=== PATIENT | male | born 1970 | race Caucasian/White ===

== ENCOUNTER 2019-04-16 05:34 | Outpatient (CLI) | payer BC ==
[~2019-04-16] VITALS: Ht 162.6 cm; Wt 102.3 kg
== END 2019-04-16 15:06 ==
LOC: PREOP 05:34
PROVIDERS: ATTEND Surgery
DX: Z01.818 Encounter for other preprocedural examination (principal)

== ENCOUNTER 2019-04-23 07:49 | Day surgery (SDC) | payer BC ==
[~2019-04-23] VITALS: Ht 162.6 cm; Wt 102.3 kg
[2019-04-23] MEDS ORDERED: LACTATED RINGERS 1,000 ML IV ONE (07:59)
[2019-04-23] MEDS ORDERED: LACTATED RINGERS 1,000 ML IV STA (07:59)
--- NOTE | 2019-04-23 08:07 | Progress Note-Pre Operative ---
Pre-Operative Progress Note H&P Reviewed The H&P was reviewed, patient examined and no changes noted. Time Seen by Provider: 08:02 Date H&P Reviewed: Apr 23, 2019 Time H&P Reviewed: 08:03 Pre-Operative Diagnosis: Screening Colonoscopy FELIPA BLACKBURN DO Apr 23, 2019 08:07
[2019-04-23 08:10] VITALS: BP 136/86
[2019-04-23] MEDS ORDERED: PROPOFOL INJECTION 50 ML IV ONE (08:35)
[2019-04-23] MEDS ORDERED: MIDAZOLAM 2 MG/2 ML (VERSED) VIAL ONE (08:36)
[2019-04-23 09:00] VITALS: BP 102/59
--- NOTE | 2019-04-23 09:00 | Progress Note-Post Operative ---
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
--- NOTE | 2019-04-23 09:01 | Endoscopy Discharge Instruct ---
Endo Procedure/Findings Findings 1.: Diverticulosis 2.: Internal Hemorrhoids Discharge Instructions - Activity: You might feel a little sleepy until tomorrow. This is due to the medicine you received to relax you. Until tomorrow, you should: NOT drive a car, operate machinery or power tools. NOT drink any alcoholic beverages. NOT make any important decisions or sign importortant papers. Do not return to work until tomorrow, unless otherwise instructed. Resume previous activities tomorrow. Diet: Start by taking liquids. If you tolerate liquids, advance to solid food. make an appointment for one week 1.: Colonscopy in 10 years Notify Physician - If you experience excessive bleeding, unusual abdominal pain, fever, or chest pain, contact your doctor immediately. FELIPA BLACKBURN DO Apr 23, 2019 09:00
[2019-04-23 09:05] VITALS: BP 99/59
[2019-04-23 09:35] VITALS: BP 108/66
[2019-04-23 09:45] VITALS: BP 108/66
--- NOTE | 2019-04-23 12:43 | Anesthesia-General Post-Op ---
MAC Patient Condition Mental Status/LOC: Same as Preop Cardiovascular: Satisfactory Nausea/Vomiting: Absent Respiratory: Satisfactory Pain: Controlled Complications: Absent Post Op Complications Complications None Follow Up Care/Instructions Patient Instructions None needed. Anesthesiology Discharge Order Discharge Order Patient is doing well, no complaints, stable vital signs, no apparent adverse anesthesia problems. No complications reported per nursing. AMARJIT CHASE CRNA Apr 23, 2019 12:43
--- NOTE | 2019-04-23 22:39 | OPERATIVE REPORT ---
DATE OF SERVICE: PREOPERATIVE DIAGNOSIS: Screening colonoscopy. POSTOPERATIVE DIAGNOSES: 1. Diverticula. 2. Internal hemorrhoids. PROCEDURE: Colonoscopy. SURGEON: Abiel Mcmullen DO. REGULATORY SUBMISSIONS SPECIALIST: Dao Manuel MS-3 ANESTHESIA: IV sedation by INTERVENTIONAL PAIN PHYSICIAN. SPECIMENS: None. BLOOD LOSS: None. FLUIDS: Per anesthesia. POSTOPERATIVE CONDITION: Stable. INDICATION FOR PROCEDURE: The patient is a 48-year-old male who needed a screening colonoscopy. FINDINGS: The patient had one small diverticula. He had some very-very small internal hemorrhoids. No other obvious pathology. PROCEDURE NOTE: After informed consent was obtained, the patient was brought to the endoscopy suite, placed in bed in left lateral decubitus position. He was administered IV sedation by the INTERVENTIONAL PAIN PHYSICIAN who monitored his vitals the entire time, heart rate, blood pressure, pulse ox and the scope was inserted all the way to [address] in, noted diverticula, took a picture, able to get all the way to cecum, took a picture of appendiceal orifice, noted the ileocecal valve and then slowly withdrew the scope insufflating to look circumferentially at the hawthorne looking the cecum, up the ascending colon to the hepatic flexure, then down the transverse colon and splenic flexure, into the descending colon and then down the sigmoid finally into the rectum, retroflexed the rectal vault, saw some very minimal internal hemorrhoids, took a picture and then removed the scope. The patient tolerated the procedure. He was recovered in endoscopy suite. Job ID: [id number] DocumentID: [id number] Dictated Date: 04/23/2019 14:22:17 Ring Facer Date: 04/23/2019 22:38:51 Dictated By: ABIEL MCMULLEN DO
== END 2019-04-23 09:45 | disposition home or self-care (01) ==
LOC: ENDO 07:49
PROVIDERS: ATTEND Surgery
DX: Z12.11 Encounter for screening for malignant neoplasm of colon (principal); K57.90 Diverticulosis of intestine, part unspecified, without perforation or abscess without bleeding; K64.8 Other hemorrhoids

== ENCOUNTER 2022-03-16 16:58 | Emergency (ER) | payer BC ==
[~2022-03-16] VITALS: Ht 162.5 cm; Wt 93.8 kg
[2022-03-16] MEDS ORDERED: ASPIRIN 81 MG CHEW (CHILDREN'S ASA) PO ONE (17:30)
--- NOTE | 2022-03-16 17:31 | ED Chest Pain ---
General Chief Complaint: Chest Pain Stated Complaint: CHEST PAIN Nursing Triage Note: PT AMB TO [facility] 5 WITH COMPLAINT OF CP. 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 STATES PAIN HAS WORSENED OVER THE DAY. STATES BP WAS HIGH AT HOME. PT IS SUPPOSE TO BE TAKING BP MEDS AT HOME BUT DOES NOT. Source: patient Exam Limitations: no limitations (MAT PYLE MD) History of Present Illness Date Seen by Provider: Mar 16, 2022 Time Seen by Provider: 17:20 Initial Comments Patient is a 51-year-old male who presents to the emergency department today with a chief complaint of sharp, sticking pain in his left axilla between his shoulder and nipple. Patient states he noted it after being at work for about 4 hours this morning at 7 AM. He states its brief, intermittent. Nothing seems to bring it on. Nothing makes it any worse when it happens. As quick as it starts it goes away. He has had it multiple times throughout the day. He states this afternoon it moved to just above his left nipple on the left anterior chest. No associated symptoms of shortness of breath, nausea or diaphoresis. He does have a history of hypertension but has not been taking medications for this because he does not like to take pills. No family history of first-degree relatives with coronary artery disease. He is not and has not ever been a smoker. He has not taken any aspirin today. He is scheduled to see his primary care physician for routine annual checkup in May 2022. He has never had a cardiac work-up/stress test in the past. Unknown cholesterol. Currently pain-free. Last week he had cough and congestion, on . He was tested for COVID and flu and they were negative. All other review of systems reviewed and negative except as stated. Timing/Duration: other (10h) Severity/Quality: mild, sharp Location: other (left axilla and left upper chest) Radiation: no radiation Activities at Onset: other (at work) Prior CP/Workup: no prior chest pain, no prior cardiac workup ASA po HEALTH TECHNICAL WRITER: No NTG SL HEALTH TECHNICAL WRITER: No Associated Symptoms: denies symptoms (MAT PYLE MD) Allergies and Home Medications Allergies Coded Allergies: No Known Allergies (Unverified Allergy, Unknown, 04/23/19) Patient Home Medication List Home Medication List Reviewed: Yes (MAT PYLE MD) No Active Prescriptions or Reported Meds Review of Systems Review of Systems Constitutional: see HPI EENTM: No Symptoms Reported Respiratory: No Symptoms Reported Cardiovascular: Chest Pain Gastrointestinal: No Symptoms Reported Genitourinary: No Symptoms Reported Musculoskeletal: no symptoms reported Skin: no symptoms reported Endocrine: No Symptoms Reported (MAT PYLE MD) All Other Systems Reviewed Negative Unless Noted: Yes (MAT PYLE MD) Past Txbmbbu-Cresqz-Nbuvkk Hx Patient Social History Tobacco Use?: No Use of E-Cig and/or Vaping dev: No Substance use?: No Alcohol Use?: Yes Alcohol Frequency: Once in a while Pt feels they are or have been: No (MAT PYLE MD) Seasonal Allergies Seasonal Allergies: No (MAT PYLE MD) Past Medical History Surgeries: Yes (neck fx, arm sx) Appendectomy Respiratory: No Cardiac: No Neurological: No Genitourinary: No Gastrointestinal: No Musculoskeletal: Yes Fractures Endocrine: No HEENT: No Psychosocial: No Integumentary: No Blood Disorders: No (MAT PYLE MD) Physical Exam Vital Signs Vital Signs - First Documented 03/16/22 17:05 Temp 36.3 Pulse 63 Resp 25 B/P (MAP) 176/96 (122) Pulse Ox 97 O2 Delivery Room Air (KRISTY BARGERA Navdeep DO) Vital Signs Capillary Refill : Less Than 3 Seconds (MTA PYLE MD) Height, Weight, BMI Height: '" Weight: lbs. oz. kg; 35.00 BMI Method: General Appearance: No Apparent Distress, WD/WN HEENT: PERRL/EOMI Respiratory: Chest Non Tender, Lungs Clear, Normal Breath Sounds, No Accessory Muscle Use, No Respiratory Distress Cardiovascular: Regular Rate, Rhythm, Normal Peripheral Pulses Gastrointestinal: Normal Bowel Sounds, Non Tender, Soft Extremity: Normal Capillary Refill, Normal Inspection, Normal Range of Motion, Non Tender, No Calf Tenderness, No Pedal Edema Neurologic/Psychiatric: Alert, Oriented x3, No Motor/Sensory Deficits, Normal Mood/Affect, investment fund manager II-XII Norm as Tested Skin: Normal Color, Warm/Dry (MAT PYLE MD) Progress/Results/Core Measures Results/Orders Lab Results Laboratory Tests Test 03/16/22 17:13 Range/Units White Blood Count 11.0 4.3-11.0 10^3/uL Red Blood Count 4.41 4.30-5.52 10^6/uL Hemoglobin 15.6 13.3-17.7 g/dL Hematocrit 44 40-54 % Mean Corpuscular Volume 99 80-99 fL Mean Corpuscular Hemoglobin 35 H 25-34 pg Mean Corpuscular Hemoglobin Concent 36 32-36 g/dL Red Cell Distribution Width 11.3 10.0-14.5 % Platelet Count 252 130-400 10^3/uL Mean Platelet Volume 10.1 9.0-12.2 fL Immature Granulocyte % (Auto) 0 % Neutrophils (%) (Auto) 49 42-75 % Lymphocytes (%) (Auto) 40 12-44 % Monocytes (%) (Auto) 8 0-12 % Eosinophils (%) (Auto) 3 0-10 % Basophils (%) (Auto) 1 0-10 % Neutrophils # (Auto) 5.4 1.8-7.8 10^3/uL Lymphocytes # (Auto) 4.4 H 1.0-4.0 10^3/uL Monocytes # (Auto) 0.9 0.0-1.0 10^3/uL Eosinophils # (Auto) 0.3 0.0-0.3 10^3/uL Basophils # (Auto) 0.1 0.0-0.1 10^3/uL Immature Granulocyte # (Auto) 0.0 0.0-0.1 10^3/uL Prothrombin Time 13.7 12.2-14.7 SEC INR Comment 1.0 0.8-1.4 Activated Partial Thromboplast Time 29 24-35 SEC Sodium Level 138 135-145 MMOL/L Potassium Level 3.6 3.6-5.0 MMOL/L Chloride Level 103 98-107 MMOL/L Carbon Dioxide Level 23 21-32 MMOL/L Anion Gap 12 5-14 MMOL/L Blood Urea Nitrogen 10 7-18 MG/DL Creatinine 0.84 0.60-1.30 MG/DL Estimat Glomerular Filtration Rate 104 BUN/Creatinine Ratio 12 Glucose Level 79 70-105 MG/DL Calcium Level 9.6 8.5-10.1 MG/DL Corrected Calcium 9.5 8.5-10.1 MG/DL Magnesium Level 1.7 1.6-2.4 MG/DL Total Bilirubin 0.5 0.1-1.0 MG/DL Aspartate Amino Transf (AST/SGOT) 21 5-34 U/L Alanine Aminotransferase (ALT/SGPT) 19 0-55 U/L Alkaline Phosphatase 81 40-136 U/L Myoglobin 34.5 10.0-92.0 NG/ML Troponin I < 0.028 <0.028 NG/ML Total Protein 8.6 H 6.4-8.2 GM/DL Albumin 4.1 3.2-4.5 GM/DL (DENITA,PRINCESS K DO) Medications Given in ED Current Medications Medications Dose Ordered Sig/Gabriela Route Start Time Stop Time Status Last Admin Dose Admin Aspirin 324 mg ONCE ONCE PO 03/16/22 17:30 03/16/22 17:31 DC 03/16/22 17:50 324 MG (DENITA,PRINCESS K DO) Vital Signs/I&O 03/16/22 17:05 Temp 36.3 Pulse 63 Resp 25 B/P (MAP) 176/96 (122) Pulse Ox 97 O2 Delivery Room Air (DENITA,PRINCESS K DO) Blood Pressure Mean: 122 Progress Progress Note : Progress Note 1800--ASSUMED CARE FROM DR. PYLE AT SHIFT CHANGE. LAB PENDING. 1817--REVIEWED TEST RESULTS WITH PT AND . PT STATES IT FEELS LIKE SOMEONE IS STICKING HIM WITH A NEEDLE--SHARP STICK PAIN THAT LASTS A SECOND AND THEN GOES AWAY, AND MOVES AROUND OVER LEFT CHEST. NO RASH OR SKIN ABNORMALITY NOTED IN THIS AREA. VITALS STABLE. 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 DISCUSSED ANTICIPATED COURSE, NEED FOR FOLLOW UP AND RETURN PRECAUTIONS (DENITA,PRINCESS K DO) Initial ECG Impression Date: Mar 16, 2022 Initial ECG Impression Time: 17:16 Initial ECG Rate: 61 Initial ECG Rhythm: Normal Sinus Comment Poor R wave progression over the precordium, no ST segment elevation or de pression is noted. No ectopy. Normal intervals. Q waves noted in lead III and aVF; lead aVF is low voltage (MAT PYLE MD) Diagnostic Imaging Comments CXR--PER RADIOLOGIST REPORT AT 1816 FINDINGS: The heart size is normal. The pulmonary vascularity is unremarkable. The lungs are clear. No infiltrate, effusion or pneumothorax is detected. IMPRESSION: No acute cardiopulmonary process is detected. Reviewed: Reviewed by Me (PRINCESS BARGER DO) Departure Impression Primary Impression: Chest pain Disposition: HOME, SELF-CARE Condition: Stable Departure-Patient Inst. Decision time for Depature: 18:30 (PRINCESS BARGER DO) Referrals: ANGELA SUTTON MD (PCP/Family) Primary Care Physician Patient Instructions: Chest Pain (DC), Heart Healthy Diet Add. Discharge Instructions: TAKE 81 MG COATED ASPIRIN DAILY TAKE YOUR BLOOD PRESSURE MEDICATION PRESCRIBED BY YOUR DR FOLLOW UP WITH YOUR DR TOMORROW FOR FURTHER CARE, RETURN TO ER IF SYMPTOMS WORS EN All discharge instructions reviewed with patient and/or family. Voiced understanding. Scripts No Active Prescriptions or Reported Meds MAT PYLE MD Mar 16, 2022 17:31 PRINCESS BARGER DO Mar 16, 2022 18:18
[2022-03-16 17:41] LABS: BASOPHILS # (AUTO) 0.1 10^3/uL (0.0-0.1); BASOPHILS % (AUTO) 1 % (0-10); EOSINOPHILS # (AUTO) 0.3 10^3/uL (0.0-0.3); EOSINOPHILS % (AUTO) 3 % (0-10); HEMATOCRIT 44 % (40-54); HEMOGLOBIN 15.6 g/dL (13.3-17.7); LYMPHOCYTES # (AUTO) 4.4 10^3/uL (1.0-4.0); LYMPHOCYTES % (AUTO) 40 % (12-44); MEAN CORPUSCULAR HEMOGLOBIN 35 pg (25-34); MEAN CORPUSCULAR HGB CONC 36 g/dL (32-36); MEAN CORPUSCULAR VOLUME 99 fL (80-99); MEAN PLATELET VOLUME 10.1 fL (9.0-12.2); MONOCYTES # (AUTO) 0.9 10^3/uL (0.0-1.0); MONOCYTES % (AUTO) 8 % (0-12); NEUTROPHILS # (AUTO) 5.4 10^3/uL (1.8-7.8); NEUTROPHILS % (AUTO) 49 % (42-75); PLATELET COUNT 252 10^3/uL (130-400)
[2022-03-16 17:55] LABS: ALBUMIN 4.1 GM/DL (3.2-4.5)
[2022-03-16 17:56] LABS: POTASSIUM 3.6 MMOL/L (3.6-5.0)
[2022-03-16 17:57] LABS: CALCIUM 9.6 MG/DL (8.5-10.1)
[2022-03-16 17:58] LABS: PROTHROMBIN TIME PATIENT 13.7 SEC (12.2-14.7); TOTAL PROTEIN 8.6 GM/DL (6.4-8.2)
[2022-03-16 18:00] LABS: BILIRUBIN,TOTAL 0.5 MG/DL (0.1-1.0)
[2022-03-16 18:02] LABS: CREATININE SERUM 0.84 MG/DL (0.60-1.30)
[2022-03-16 18:04] LABS: MAGNESIUM 1.7 MG/DL (1.6-2.4)
--- NOTE | 2022-03-16 18:04 | Diagnostic Imaging Report ---
INDICATION: Chest pain. TIME OF EXAM: 05:33 p.m. COMPARISON: No prior studies are available for comparison. FINDINGS: The heart size is normal. The pulmonary vascularity is unremarkable. The lungs are clear. No infiltrate, effusion or pneumothorax is detected. IMPRESSION: No acute cardiopulmonary process is detected. Dictated by: Dictated on workstation # [id number]
[2022-03-16 18:35] VITALS: BP 136/88
== END 2022-03-16 18:40 | disposition home or self-care (01) ==
LOC: EDUNIT# 16:58 → ER 17:00
DX: R07.89 Other chest pain (principal)
CPT/HCPCS: 36415; 71045; 80053; 83735; 83874; 84484; 85025; 85610; 85730; 93005; 93041